=== PATIENT | female | born 1960 | race Caucasian/White ===

== ENCOUNTER 2017-01-06 18:01 | Inpatient (IN) | payer MEDICAID, OTHER, SELFPAY ==
[2017-01-06 18:01] VITALS: BMI 32.5
[2017-01-06] MEDS ORDERED: Aspirin 325 mg EC Tablets PO STA (18:21)
--- NOTE | 2017-01-06 18:26 | C.PDOC ---
History Of Present Illness 56 y/o female with Hx of HTN, hypothyrodism and Gastritis presents to ED with complaints of left sided heaviness chest pain since earlier today. Patient states symptoms developed while she was cooking worse with deep breaths. At bedside patient has paperwork from [place] that show she has CAD. Patient denies fever, cough, sob or any other complaints at this time. Time Seen by Provider: 01/06/17 18:06 Chief Complaint (Nursing): Chest Pain History Per: Patient History/Exam Limitations: no limitations Onset/Duration Of Symptoms: Hrs Current Symptoms Are (Timing): Still Present Past Medical History Reviewed: Historical Data, Nursing Documentation, Vital Signs Vital Signs: Last Vital Signs Temp 97.5 F L 01/07/17 09:32 Pulse 63 01/07/17 09:32 Resp 20 01/07/17 09:32 BP 107/66 01/07/17 09:32 Pulse Ox 98 01/07/17 09:32 - Medical History PMH: Gastritis, HTN, Hypercholesterolemia, Hypothyroidism Surgical History: No Surg Hx Family History: States: No Known Family Hx - Social History Hx Alcohol Use: No Hx Substance Use: No - Immunization History Hx Tetanus Toxoid Vaccination: No Hx Influenza Vaccination: No Hx Pneumococcal Vaccination: No Review Of Systems Except As Marked, All Systems Reviewed And Found Negative. Constitutional: Negative for: Fever, Chills Cardiovascular: Positive for: Chest Pain Respiratory: Negative for: Cough, Shortness of Breath Gastrointestinal: Negative for: Nausea, Vomiting Skin: Negative for: Rash Physical Exam - Physical Exam Appears: Non-toxic, No Acute Distress Skin: Normal Color, Warm, Dry, No Rash Head: Atraumatic, Normacephalic Eye(s): bilateral: Normal Inspection Oral Mucosa: Moist Neck: Normal ROM, Supple Chest: Symmetrical Cardiovascular: Rhythm Regular, No Murmur Respiratory: Normal Breath Sounds, No Rales, No Rhonchi, No Wheezing Extremity: Normal ROM, Capillary Refill (<2 seconds) Neurological/Psych: Oriented x3, Normal Speech ED Course And Treatment - Laboratory Results Result Diagrams: 01/07/17 11:29 01/07/17 11:29 ECG: Interpreted By Me, Viewed By Me ECG Rhythm: Sinus Rhythm ECG Interpretation: Normal Rate From EC (BPM) O2 Sat by Pulse Oximetry: 100 (RA) Pulse Ox Interpretation: Normal Medical Decision Making Medical Decision Making: cp r/o acs- pt with paper work that shows has cad with 50% stenosis. Plan: * ECG * CXR * UA * Blood work * 730: discussed with dr munoz, accepts for obs. pt states pain nearly resolved. smiling in nad. Disposition - Disposition Disposition: HOSPITALIZED Disposition Time: 19:37 Condition: STABLE - Clinical Impression Clinical Impression: Chest pain - Scribe Statement The provider has reviewed the documentation as recorded by the Scribgilles Iyer All medical record entries made by the Anilibe were at my direction and personally dictated by me. I have reviewed the chart and agree that the record accurately reflects my personal performance of the history, physical exam, medical decision making, and the department course for this patient. I have also personally directed, reviewed, and agree with the discharge instructions and disposition. Decision To Admit - . Bed Request Type: Telemetry Admitting Physician: Hanny Munoz Patient Diagnosis: Chest pain
[2017-01-06 18:55] LABS: BASO # 0.1 K/uL (0.0-0.2); BASO % 0.9 % (0.0-2.0); EOS # 0.2 K/uL (0.0-0.7); EOS % 2.3 % (0.0-4.0); HEMATOCRIT 34.6 % (34.0-47.0); LYMPH # 3.3 K/uL (1.0-4.3); LYMPH % 31.6 % (20.0-40.0); MEAN CELL VOLUME 82.1 fL (81.0-99.0); MEAN CORPUSCULAR HEMOGLOBIN 27.9 pg (27.0-31.0); MEAN PLATELET VOLUME 9.4 fL (7.2-11.7); MONO # 0.6 K/uL (0.0-0.8); MONO % 5.6 % (0.0-10.0); RED CELL DISTRIBUTION WIDTH 13.4 % (11.5-14.5); WHITE BLOOD COUNT 10.6 K/uL (4.8-10.8)
[2017-01-06] MEDS ORDERED: Aspirin 325 mg EC Tablets PO ONE (18:56)
[2017-01-06 18:58] LABS: RBC URINE < 1 /hpf (0-3); URINE BACTERIA RARE (<OCC); URINE BILIRUBIN NEGATIVE (NEGATIVE); URINE BLOOD NEGATIVE (NEGATIVE); URINE COLOR Colorless (YELLOW); URINE GLUCOSE (UA) NORMAL (Normal); URINE KETONE NEGATIVE (NEGATIVE); URINE LEUKOCYTE ESTERASE NEG Leu/uL (Negative); URINE PROTEIN NEGATIVE (NEGATIVE); URINE UROBILINOGEN NORMAL mg/dL (0.2-1.0); WBC URINE < 1 /hpf (0-5)
[2017-01-06 19:02] LABS: CHLORIDE 105 mmol/L (98-107); SODIUM 144 mmol/L (132-148)
[2017-01-06 19:03] LABS: POTASSIUM 3.9 mmol/L (3.6-5.2)
[2017-01-06 19:04] LABS: INR 1.2; PARTIAL THROMBOPLASTIN TIME 31 SECONDS (21-34)
[2017-01-06 19:05] LABS: ALB/GLOB RATIO 1.3 (1.0-2.1); ALKALINE PHOSPHATASE 97 U/L (38-126); ALT/SGPT 27 U/L (9-52); AST/SGOT 21 U/L (14-36); BILIRUBIN,TOTAL 0.5 mg/dL (0.2-1.3); BLOOD UREA NITROGEN 10 mg/dL (7-17); CARBON DIOXIDE 27 mmol/L (22-30); GFR AFRICAN-AMERICAN > 60; GLUCOSE,RANDOM 110 mg/dL (65-105); TOTAL PROTEIN 7.4 g/dL (6.3-8.3)
[2017-01-06 19:06] LABS: CALCIUM 8.8 mg/dl (8.6-10.4)
[2017-01-06 20:49] VITALS: RESP 20
--- NOTE | 2017-01-06 21:41 | CP.PCM.HP ---
Past Patient History - Past Social History Smoking Status: Never Smoked - CARDIAC Hx Hypercholesterolemia: Yes Hx Hypertension: Yes - ENDOCRINE/METABOLIC Hx Hypothyroidism: Yes - GASTROINTESTINAL Hx Gastritis: Yes - PSYCHIATRIC Hx Substance Use: No - SURGICAL HISTORY Hx Surgeries: No - ANESTHESIA Hx Anesthesia: No Meds Allergies/Adverse Reactions: Allergies Allergy/AdvReac Type Severity Reaction Status Date / Time No Known Allergies Allergy Verified 01/06/17 18:25 Physical Exam - Constitutional Appears: Well - Head Exam Head Exam: ATRAUMATIC, NORMAL INSPECTION, NORMOCEPHALIC - Eye Exam Eye Exam: EOMI, Normal appearance, PERRL Pupil Exam: NORMAL ACCOMODATION, PERRL - ENT Exam ENT Exam: Mucous Membranes Moist, Normal Exam - Neck Exam Neck exam: Positive for: Normal Inspection - Respiratory Exam Respiratory Exam: Decreased Breath Sounds - Cardiovascular Exam Cardiovascular Exam: REGULAR RHYTHM - GI/Abdominal Exam GI & Abdominal Exam: Diminished Bowel Sounds, Soft - Rectal Exam Rectal Exam: Deferred Results - Vital Signs Recent Vital Signs: Last Vital Signs Temp 98 F 01/06/17 20:33 Pulse 67 01/06/17 20:33 Resp 20 01/06/17 20:33 BP 117/69 01/06/17 20:33 Pulse Ox 96 01/06/17 20:33 - Labs Result Diagrams: 01/06/17 18:50 01/06/17 18:50
--- NOTE | 2017-01-07 06:53 | CP.PCM.CON ---
History of Present Illness - History of Present Illness History of Present Illness: record noted. will plan for stress test. full consult to follow. Past Patient History - Past Medical History & Family History Past Medical History?: Yes - Past Social History Smoking Status: Never Smoked - CARDIAC Hx Hypercholesterolemia: Yes Hx Hypertension: Yes - ENDOCRINE/METABOLIC Hx Hypothyroidism: Yes - MUSCULOSKELETAL/RHEUMATOLOGICAL Hx Falls: No - GASTROINTESTINAL Hx Gastritis: Yes - PSYCHIATRIC Hx Substance Use: No - SURGICAL HISTORY Hx Surgeries: No - ANESTHESIA Hx Anesthesia: No Meds Allergies/Adverse Reactions: Allergies Allergy/AdvReac Type Severity Reaction Status Date / Time No Known Allergies Allergy Verified 01/06/17 18:25 - Medications Medications: Current Medications Aspirin (Aspirin) 325 mg PO DAILY [facility] Clopidogrel Bisulfate (Plavix) 75 mg PO DAILY [facility] Enoxaparin Sodium (Lovenox) 40 mg SC DAILY [facility] Influenza Virus Vaccine (Afluria) 45 mcg IM .ONCE ONE Stop: 01/07/17 10:01 Levothyroxine Sodium (Synthroid) 50 mcg PO DAILY@0630 [facility] Metoprolol Tartrate (Lopressor) 25 mg PO DAILY [facility] Morphine Sulfate (Morphine) 2 mg IV Q8 PRN PRN Reason: Pain, moderate (4-7) Last Admin: 01/06/17 22:22 Dose: 2 mg Pantoprazole Sodium (Protonix Ec Tab) 40 mg PO DAILY [facility] Pneumococcal Polyvalent Vaccine (Pneumovax 23 Vaccine) 0.5 ml IM .ONCE ONE Stop: 01/07/17 10:01 Rosuvastatin Calcium (Crestor) 10 mg PO HS [facility] Last Admin: 01/06/17 22:22 Dose: 10 mg Results - Vital Signs Recent Vital Signs: Last Vital Signs Temp 98.2 F 01/06/17 23:45 Pulse 64 01/06/17 23:45 Resp 20 01/06/17 23:45 BP 107/58 L 01/06/17 23:45 Pulse Ox 97 01/06/17 23:45 - Labs Result Diagrams: 01/06/17 18:50 01/06/17 18:50 Labs: Laboratory Results - last 24 hr 01/07/17 01/07/17 03:30 06:39 POC Glucose (mg/dL) 116 H Total Creatine Kinase 29 L CK-MB (Mass) < 0.22 Troponin I, Quant < 0.0120
[2017-01-07] MEDS: Levothyroxine 50 MCG TAB PO SCH (07:14)
[2017-01-07] MEDS ORDERED: Aminophylline 25 mg/ml Inj ONE (07:47)
--- NOTE | 2017-01-07 08:12 | RAD ---
PROCEDURE: CHEST RADIOGRAPH, 1 VIEW HISTORY: chest pain COMPARISON: None available. FINDINGS: LUNGS: Mild venous congestion. Patchy bibasilar airspace opacities. Focal consolidative changes in the left suprahilar region. Right hilar prominence. Scattered nodular densities in both lungs. PLEURA: As above. CARDIOVASCULAR: Mild cardiomegaly. Calcification at the aortic knob. OSSEOUS STRUCTURES: Degenerative changes in the spine with paravertebral osteophytes. Degenerative changes in the shoulders. VISUALIZED UPPER ABDOMEN: Normal. OTHER FINDINGS: None. IMPRESSION: Mild venous congestion. Patchy bibasilar airspace opacities. Focal consolidative changes in the left suprahilar region. Right hilar prominence. Scattered nodular densities in both lungs.
[2017-01-07] MEDS: Enoxaparin 40 mg Syringe SC SCH (09:58)
[2017-01-07] MEDS: Pantoprazole 40 mg EC Tab PO SCH (09:59)
[2017-01-07] MEDS ORDERED: Pneumococcal 23-Valent Vaccine IM ONE (10:00)
[2017-01-07] MEDS ORDERED: Influenza Virus Vaccine 45 mcg/0.5 ml Syr IM ONE (10:00)
[2017-01-07 11:39] LABS: BASO % 0.6 % (0.0-2.0); EOS # 0.2 K/uL (0.0-0.7); EOS % 3.2 % (0.0-4.0); HEMATOCRIT 33.3 % (34.0-47.0); LYMPH # 2.4 K/uL (1.0-4.3); LYMPH % 36.6 % (20.0-40.0); MEAN CELL VOLUME 82.8 fL (81.0-99.0); MEAN CORPUSCULAR HEMOGLOBIN 28.3 pg (27.0-31.0); MEAN CORPUSCULAR HGB CONC 34.2 g/dL (33.0-37.0); MEAN PLATELET VOLUME 10.1 fL (7.2-11.7); MONO # 0.5 K/uL (0.0-0.8); MONO % 7.1 % (0.0-10.0); NRBC % 0.1 % (0.0-2.0); RED CELL DISTRIBUTION WIDTH 13.1 % (11.5-14.5); WHITE BLOOD COUNT 6.6 K/uL (4.8-10.8)
[2017-01-07 11:55] LABS: ALB/GLOB RATIO 1.1 (1.0-2.1); ALKALINE PHOSPHATASE 100 U/L (38-126); ALT/SGPT 28 U/L (9-52); AST/SGOT 25 U/L (14-36); BILIRUBIN,TOTAL 0.5 mg/dL (0.2-1.3); BLOOD UREA NITROGEN 10 mg/dL (7-17); CALCIUM 9.1 mg/dl (8.6-10.4); CARBON DIOXIDE 29 mmol/L (22-30); CHLORIDE 100 mmol/L (98-107); GFR AFRICAN-AMERICAN > 60; GLUCOSE,RANDOM 117 mg/dL (65-105); POTASSIUM 4.2 mmol/L (3.6-5.2); SODIUM 142 mmol/L (132-148); TOTAL PROTEIN 7.1 g/dL (6.3-8.3)
--- NOTE | 2017-01-07 15:36 | CP.PCM.PN ---
Subjective - Date & Time of Evaluation Date of Evaluation: 01/07/17 Time of Evaluation: 08:00 - Subjective Subjective: Medicine Progress Note- Dr. Charlene Chiu's service: 56 year old female with PMHx of HTN, CAD, gastritis, HLD, hypothyroidism admitted overnight for chest pain. Admits chest pain was pressure like. Symptoms are not due to reflux as per patient. She had cath done in [place] last year which showed 50% occlusion of Lcx. Patient seen and examined at bedside this AM. Patient reports feeling better this AM, but continues to experience chest discomfort. Patient was seen by Dr. Hall who recommended a stress test. Patient is scheduled for stress test today. PMHx: HTN, CAD, gastritis, HLD, hypothyroidism Medications: Aspirin 81 mg PO daily, Levothyroxine 50 mcg PO daily, Metoprolol 25 mg PO daily, Protonix 40 mg PO daily, Crestor 10 mg PO HS. Allergies: NKDA Surgery Hx: none Social Hx: denies Family Hx: reviewed and non contributory Objective - Vital Signs/Intake and Output Vital Signs (last 24 hours): Temp Pulse Resp BP Pulse Ox 97.5 F L 63 20 107/66 98 01/07/17 09:32 01/07/17 09:32 01/07/17 09:32 01/07/17 09:32 01/07/17 09:32 Intake and Output: 01/07/17 01/07/17 06:59 18:59 Intake Total 50 Balance 50 - Medications Medications: Current Medications Aspirin (Aspirin) 325 mg PO DAILY [facility] Last Admin: 01/07/17 10:08 Dose: 325 mg Clopidogrel Bisulfate (Plavix) 75 mg PO DAILY [facility] Last Admin: 01/07/17 09:58 Dose: 75 mg Enoxaparin Sodium (Lovenox) 40 mg SC DAILY [facility] Last Admin: 01/07/17 09:58 Dose: 40 mg Levothyroxine Sodium (Synthroid) 50 mcg PO DAILY@0630 [facility] Last Admin: 01/07/17 07:14 Dose: 50 mcg Metoprolol Tartrate (Lopressor) 25 mg PO DAILY [facility] Last Admin: 01/07/17 09:59 Dose: 25 mg Morphine Sulfate (Morphine) 2 mg IV Q8 PRN PRN Reason: Pain, moderate (4-7) Last Admin: 01/06/17 22:22 Dose: 2 mg Pantoprazole Sodium (Protonix Ec Tab) 40 mg PO DAILY [facility] Last Admin: 01/07/17 09:59 Dose: 40 mg Rosuvastatin Calcium (Crestor) 10 mg PO HS [facility] Last Admin: 01/06/17 22:22 Dose: 10 mg - Labs Labs: 01/07/17 11:29 01/07/17 11:29 PT 12.9 SECONDS (9.7-12.2) H 01/06/17 18:50 INR 1.2 01/06/17 18:50 APTT 31 SECONDS (21-34) 01/06/17 18:50 - Constitutional Appears: No Acute Distress - Head Exam Head Exam: NORMAL INSPECTION, NORMOCEPHALIC - Eye Exam Eye Exam: EOMI, Normal appearance - ENT Exam ENT Exam: Mucous Membranes Moist - Neck Exam Neck Exam: Full ROM, Normal Inspection - Respiratory Exam Respiratory Exam: Clear to Ausculation Bilateral, NORMAL BREATHING PATTERN - Cardiovascular Exam Cardiovascular Exam: REGULAR RHYTHM, +S1, +S2 - GI/Abdominal Exam GI & Abdominal Exam: Soft. absent: Distended, Tenderness - Extremities Exam Extremities Exam: Full ROM, Normal Inspection. absent: Pedal Edema - Neurological Exam Neurological Exam: Alert, Awake, Oriented x3 - Psychiatric Exam Psychiatric exam: Normal Affect, Normal Mood - Skin Skin Exam: Dry, Normal Color, Warm Assessment and Plan (1) Chest pain Assessment & Plan: Monitor on Telemetry Cardio consult placed- Dr. Hall- help appreciated EKG on admission showed NSR 71 bpm. LEXA negative X 3 CXR done on admission showed mild venous congestion. Patchy bibasilar airspace opacities. Focal consolidative changes in the left suprahilar region. Right hilar prominence. Scattered nodular densities in both lungs. As per Dr. Hall, patient is NPO for stress test today. f/u stress test results Aspirin 81 mg PO daily Plavix 75 mg PO daily Lopressr 25 mg PO daily Crestor 10 mg PO HS Morphine 2 mg IV q8H PRN for pain Status: Acute (2) CAD (coronary artery disease) Assessment & Plan: Patient with 50% occlusion of Hx of LCx Aspirin 81 mg PO daily Plavix 75 mg PO daily Lopressr 25 mg PO daily Crestor 10 mg PO HS Status: Acute (3) Hypothyroidism Assessment & Plan: Continue home medication: Synthroid 50 mcg PO daily Status: Acute (4) HTN (hypertension) Assessment & Plan: BP controlled Lopressor 25 mg PO daily Status: Acute (5) Prophylactic measure Assessment & Plan: Protonix 40 mg PO daily Lovenox 40 mg SC daily All management as per Dr. Charlene Chiu. Status: Acute
--- NOTE | 2017-01-07 16:42 | CP.PCM.CON ---
History of Present Illness - History of Present Illness History of Present Illness: I was asked to see patient by Dr Charlene Chiu. Patient is a 56 year old female with a history of CAD, HTN who presents with chest pain. The patient describes pressure in the chest which is intermittent, asociated with dypsnea. She describes a pressure like sensation which radiates to the arm. Symptoms improve with rest. Review of Systems - Constitutional Constitutional: absent: As Per HPI, Anorexia, Chills, Daytime Sleepiness, Excessive Sweating, Fatigue, Fever, Frequent Falls, Headache, Increased Appetite , Lethargy, Malaise, Night Sweats, Snoring, Sleep Apnea, Weight Gain, Weight Loss, Weakness, Other - EENT Eyes: absent: As Per HPI, Blind Spots, Blurred Vision, Change in Vision, Decreased Night Vision, Diplopia, Discharge, Dry Eye, Exophthalmos, Floaters, Irritation, Itchy Eyes, Loss of Peripheral Vision, Pain, Photophobia, Requires Corrective Lenses, Sees Flashes, Spots in Vision, Tunnel Vision, Other Visual Disturbances, Loss of Vision, Other Ears: absent: As Per HPI, Decreased Hearing, Ear Discharge, Ear Pain, Tinnitus, Abnormal Hearing, Disequilibrium, Dizziness, Other Nose/Mouth/Throat: absent: As Per HPI, Epistaxis, Nasal Congestion, Nasal Discharge, Nasal Obstruction, Nasal Trauma, Nose Pain, Post Nasal Drip, Sinus Pain, Sinus Pressure, Bleeding Gums, Change in Voice, Dental Pain, Dry Mouth, Dysphagia, Halitosis, Hoarsness, Lip Swelling, Mouth Lesions, Mouth Pain, Odynophagia, Sore Throat, Throat Swelling, Tongue Swelling, Facial Pain, Neck Pain, Neck Mass, Other - Breasts Breasts: absent: As Per HPI, Change in Shape, Mass, Pain, Nipple Discharge, Nipple Inversion, Skin Changes, Swelling, Other - Cardiovascular Cardiovascular: Chest Pain, Dyspnea - Respiratory Respiratory: absent: As Per HPI, Cough, Dyspnea, Hemoptysis, Dyspnea on Exertion , Wheezing, Snoring, Stridor, Pain on Inspiration, Chest Congestion, Excessive Mucous Production, Change in Mucous Color, Pain with Coughing, Other - Gastrointestinal Gastrointestinal: absent: As Per HPI, Abdominal Pain, Belching, Bloating, Change in Bowel Habits, Change in Stool Character, Coffee Ground Emesis, Constipation, Cramping, Diarrhea, Dyspepsia, Dysphagia, Early Satiety, Excessive Flatus, Fecal Incontinence, Heartburn, Hematemesis, Hematochezia, Loose Stools, Melena, Nausea, Odynophagia, Temesmus, Vomiting, Other - Genitourinary Genitourinary: absent: As Per HPI, Change in Urinary Stream, Difficulty Urinating, Dysuria, Flank Pain, Hematuria, Pyuria, Nocturia, Urinary Incontinence, Urinary Frequency, Urinary Hesitance, Urinary Urgency, Voiding Freq/Small Amts, Freq UTI, Hx Renal/Bladder Calculi, Hx /Renal Surgery, Bladder Distension, Other - Musculoskeletal Musculoskeletal: absent: As Per HPI, Abnormal Gait, Arthralgias, Atrophy, Back Pain, Deformity, Joint Swelling, Limited Range of Motion, Loss of Height, Muscle Cramps, Muscle Weakness, Myalgias, Neck Pain, Numbness, Radiating Pain into Limb, Stiffness, Tingling, Other - Integumentary Integumentary: absent: As Per HPI, Acne, Alopecia, Bleeding Lesions, Change in Hair, Change in Nails, Change in Pigmentation, Changing Lesions, Dry Skin, Erythema, Furuncle, Hirsutism, Lesions, New Lesions, Non-Healing Lesions, Photosensitivity, Pruritus, Rash, Skin Pain, Skin Ulcer, Sores, Striae, Swelling , Unusual Bruising, Wounds, Jaundice, Other - Neurological Neurological: absent: As Per HPI, Abnormal Gait, Abnormal Hearing, Abnormal Movements, Abnormal Speech, Behavioral Changes, Burning Sensations, Confusion, Convulsions, Disequilibrium, Dizziness, Numbness, Focal Weakness, Frequent Falls , Headaches, Lack of Coordination, Loss of Vision, Memory Loss, Paresthesias, Radicular Pain, Restless Legs, Sensory Deficit, Syncope, Tingling, Tremor, Vertigo, Weakness, Other Visual Disturbances, Other - Psychiatric Psychiatric: absent: As Per HPI, Abnormal Sleep Pattern, Anhedonia, Anxiety, Auditory Hallucinations, Behavioral Changes, Change in Appetite, Change in Libido, Confusion, Depression, Difficulty Concentrating, Hallucinations, Homicidal Ideation, Hopelessness, Irritability, Memory Loss, Mood Swings, Panic Attacks, Paranoia, Suicidal Ideation, Visual Hallucinations, Tactile Hallucinations, Other - Endocrine Endocrine: absent: As Per HPI, Change in Body Appearance, Change in Libido, Cold Intolorance, Deepening of Voice, Excessive Sweating, Fatigue, Flushing, Heat Intolorance, Increase in Ring/Shoe/Hat Size, Palpitations, Polydipsia, Polyphagia, Polyuria, Other - Hematologic/Lymphatic Hematologic: absent: As Per HPI, Easy Bleeding, Easy Bruising, Lymphadenopathy, Other Past Patient History - Past Medical History & Family History Past Medical History?: Yes - Past Social History Smoking Status: Never Smoked - CARDIAC Hx Hypercholesterolemia: Yes Hx Hypertension: Yes - ENDOCRINE/METABOLIC Hx Hypothyroidism: Yes - MUSCULOSKELETAL/RHEUMATOLOGICAL Hx Falls: No - GASTROINTESTINAL Hx Gastritis: Yes - PSYCHIATRIC Hx Substance Use: No - SURGICAL HISTORY Hx Surgeries: No - ANESTHESIA Hx Anesthesia: No Meds Allergies/Adverse Reactions: Allergies Allergy/AdvReac Type Severity Reaction Status Date / Time No Known Allergies Allergy Verified 01/06/17 18:25 - Medications Medications: Current Medications Aspirin (Aspirin) 325 mg PO DAILY [facility] Last Admin: 01/07/17 10:08 Dose: 325 mg Clopidogrel Bisulfate (Plavix) 75 mg PO DAILY [facility] Last Admin: 01/07/17 09:58 Dose: 75 mg Enoxaparin Sodium (Lovenox) 40 mg SC DAILY [facility] Last Admin: 01/07/17 09:58 Dose: 40 mg Levothyroxine Sodium (Synthroid) 50 mcg PO DAILY@0630 [facility] Last Admin: 01/07/17 07:14 Dose: 50 mcg Metoprolol Tartrate (Lopressor) 25 mg PO DAILY [facility] Last Admin: 01/07/17 09:59 Dose: 25 mg Morphine Sulfate (Morphine) 2 mg IV Q8 PRN PRN Reason: Pain, moderate (4-7) Last Admin: 01/06/17 22:22 Dose: 2 mg Pantoprazole Sodium (Protonix Ec Tab) 40 mg PO DAILY [facility] Last Admin: 01/07/17 09:59 Dose: 40 mg Rosuvastatin Calcium (Crestor) 10 mg PO HS [facility] Last Admin: 01/06/17 22:22 Dose: 10 mg Physical Exam - Constitutional Appears: Non-toxic - Head Exam Head Exam: NORMAL INSPECTION - Eye Exam Eye Exam: Normal appearance - ENT Exam ENT Exam: Mucous Membranes Moist - Neck Exam Neck exam: Positive for: Full Rom - Respiratory Exam Respiratory Exam: NORMAL BREATHING PATTERN - Cardiovascular Exam Cardiovascular Exam: Clicks - GI/Abdominal Exam GI & Abdominal Exam: Normal Bowel Sounds - Rectal Exam Rectal Exam: Deferred - Extremities Exam Extremities exam: Positive for: pedal edema - Back Exam Back exam: NORMAL INSPECTION - Neurological Exam Neurological exam: Alert, Oriented x3 - Psychiatric Exam Psychiatric exam: Normal Affect - Skin Skin Exam: Normal Color Results - Vital Signs Recent Vital Signs: Last Vital Signs Temp 97.6 F 01/07/17 16:04 Pulse 61 01/07/17 16:04 Resp 20 01/07/17 16:04 BP 109/67 01/07/17 16:04 Pulse Ox 97 01/07/17 16:04 - Labs Result Diagrams: 01/07/17 11:29 01/07/17 11:29 Labs: Laboratory Results - last 24 hr 01/07/17 01/07/17 01/07/17 03:30 06:39 11:29 WBC RBC Hgb Hct MCV MCH MCHC RDW Plt Count MPV Neut % (Auto) Lymph % (Auto) [place] % (Auto) Eos % (Auto) Baso % (Auto) Neut # Lymph # [place] # Eos # Baso # Sodium 142 Potassium 4.2 Chloride 100 Carbon Dioxide 29 Anion Gap 17 BUN 10 Creatinine 0.6 L Est GFR ( Amer) > 60 Est GFR (Non-Af Amer) > 60 POC Glucose (mg/dL) 116 H Random Glucose 117 H Calcium 9.1 Total Bilirubin 0.5 AST 25 ALT 28 Alkaline Phosphatase 100 Total Creatine Kinase 29 L 27 L CK-MB (Mass) < 0.22 < 0.22 Troponin I, Quant < 0.0120 < 0.0120 Total Protein 7.1 Albumin 3.8 Globulin 3.3 Albumin/Globulin Ratio 1.1 01/07/17 11:29 WBC 6.6 RBC 4.02 Hgb 11.4 Hct 33.3 L MCV 82.8 MCH 28.3 MCHC 34.2 RDW 13.1 Plt Count 182 MPV 10.1 Neut % (Auto) 52.5 Lymph % (Auto) 36.6 [place] % (Auto) 7.1 Eos % (Auto) 3.2 Baso % (Auto) 0.6 Neut # 3.5 Lymph # 2.4 [place] # 0.5 Eos # 0.2 Baso # 0.0 Sodium Potassium Chloride Carbon Dioxide Anion Gap BUN Creatinine Est GFR ( Amer) Est GFR (Non-Af Amer) POC Glucose (mg/dL) Random Glucose Calcium Total Bilirubin AST ALT Alkaline Phosphatase Total Creatine Kinase CK-MB (Mass) Troponin I, Quant Total Protein Albumin Globulin Albumin/Globulin Ratio - EKG Data EKG Interpreted by: Myself EKG shows normal: Sinus rhythm Assessment & Plan (1) CAD (coronary artery disease) Assessment and Plan: given symptoms recommend stress test Status: Acute (2) HTN (hypertension) Status: Acute
--- NOTE | 2017-01-07 21:09 | CP.PCM.PN ---
Subjective - Date & Time of Evaluation Date of Evaluation: 01/07/17 Time of Evaluation: 10:40 - Subjective Subjective: clinically same Objective - Vital Signs/Intake and Output Vital Signs (last 24 hours): Temp Pulse Resp BP Pulse Ox 97.6 F 83 20 109/67 97 01/07/17 16:04 01/07/17 18:00 01/07/17 16:04 01/07/17 16:04 01/07/17 16:04 Intake and Output: 01/07/17 01/08/17 18:59 06:59 Intake Total 50 Balance 50 - Medications Medications: Current Medications Aspirin (Aspirin) 325 mg PO DAILY [facility] Last Admin: 01/07/17 10:08 Dose: 325 mg Clopidogrel Bisulfate (Plavix) 75 mg PO DAILY [facility] Last Admin: 01/07/17 09:58 Dose: 75 mg Enoxaparin Sodium (Lovenox) 40 mg SC DAILY [facility] Last Admin: 01/07/17 09:58 Dose: 40 mg Levothyroxine Sodium (Synthroid) 50 mcg PO DAILY@0630 [facility] Last Admin: 01/07/17 07:14 Dose: 50 mcg Metoprolol Tartrate (Lopressor) 25 mg PO DAILY [facility] Last Admin: 01/07/17 09:59 Dose: 25 mg Morphine Sulfate (Morphine) 2 mg IV Q8 PRN PRN Reason: Pain, moderate (4-7) Last Admin: 01/06/17 22:22 Dose: 2 mg Pantoprazole Sodium (Protonix Ec Tab) 40 mg PO DAILY [facility] Last Admin: 01/07/17 09:59 Dose: 40 mg Rosuvastatin Calcium (Crestor) 10 mg PO [facility] Last Admin: 01/06/17 22:22 Dose: 10 mg - Labs Labs: 01/07/17 11:29 01/07/17 11:29 PT 12.9 SECONDS (9.7-12.2) H 01/06/17 18:50 INR 1.2 01/06/17 18:50 APTT 31 SECONDS (21-34) 01/06/17 18:50
[2017-01-08] MEDS: Levothyroxine 50 MCG TAB PO SCH ×2 (05:43→06:30)
[2017-01-08 06:45] LABS: BASO # 0.1 K/uL (0.0-0.2); BASO % 0.7 % (0.0-2.0); EOS # 0.4 K/uL (0.0-0.7); EOS % 3.9 % (0.0-4.0); HEMATOCRIT 39.1 % (34.0-47.0); LYMPH # 3.6 K/uL (1.0-4.3); LYMPH % 33.6 % (20.0-40.0); MEAN CELL VOLUME 82.7 fL (81.0-99.0); MEAN CORPUSCULAR HGB CONC 33.8 g/dL (33.0-37.0); MEAN PLATELET VOLUME 9.9 fL (7.2-11.7); MONO # 0.7 K/uL (0.0-0.8); MONO % 6.6 % (0.0-10.0); NRBC % 0.1 % (0.0-2.0); RED CELL DISTRIBUTION WIDTH 13.2 % (11.5-14.5); WHITE BLOOD COUNT 10.8 K/uL (4.8-10.8)
[2017-01-08 07:00] LABS: CHLORIDE 99 mmol/L (98-107); POTASSIUM 4.7 mmol/L (3.6-5.2); SODIUM 142 mmol/L (132-148)
[2017-01-08 07:02] LABS: GFR AFRICAN-AMERICAN > 60
[2017-01-08] MEDS ORDERED: Nitroglycerin 50mg in D5W 50 MG/250 ML BOTTLE IV ONE (07:02)
[2017-01-08 07:03] LABS: ALB/GLOB RATIO 1.3 (1.0-2.1); ALKALINE PHOSPHATASE 104 U/L (38-126); ALT/SGPT 29 U/L (9-52); AST/SGOT 26 U/L (14-36); BILIRUBIN,TOTAL 0.6 mg/dL (0.2-1.3); BLOOD UREA NITROGEN 11 mg/dL (7-17); CARBON DIOXIDE 31 mmol/L (22-30); GLUCOSE,RANDOM 120 mg/dL (65-105); PHOSPHOROUS 4.7 mg/dL (2.5-4.5); TOTAL PROTEIN 7.5 g/dL (6.3-8.3)
[2017-01-08 07:04] LABS: CALCIUM 9.8 mg/dl (8.6-10.4); MAGNESIUM 2.1 mg/dL (1.6-2.3)
[2017-01-08] MEDS ORDERED: Midazolam 2 MG/2 ML VIAL ONE (07:04)
[2017-01-08] MEDS ORDERED: Sodium Chloride 0.9% 500 ML IV SCH (07:43)
--- NOTE | 2017-01-08 07:43 | CP.PCM.PN ---
Subjective - Date & Time of Evaluation Date of Evaluation: 01/08/17 Time of Evaluation: 07:40 - Subjective Subjective: cardaic cath performed. LM normal LAD 40% mid Diagonal 2 50% mid LCx mild disease RCA mild disease LV EF 55%. Plan: medical therapy. stable for discharge. Objective - Vital Signs/Intake and Output Vital Signs (last 24 hours): Temp Pulse Resp BP Pulse Ox 97.8 F 95 H 20 132/72 96 01/08/17 06:33 01/08/17 06:33 01/08/17 06:33 01/08/17 06:33 01/08/17 06:33 - Medications Medications: Current Medications Aspirin (Aspirin) 325 mg PO DAILY [facility] Last Admin: 01/07/17 10:08 Dose: 325 mg Clopidogrel Bisulfate (Plavix) 75 mg PO DAILY [facility] Last Admin: 01/07/17 09:58 Dose: 75 mg Enoxaparin Sodium (Lovenox) 40 mg SC DAILY [facility] Last Admin: 01/07/17 09:58 Dose: 40 mg Levothyroxine Sodium (Synthroid) 50 mcg PO DAILY@0630 [facility] Last Admin: 01/08/17 06:30 Dose: 50 mcg Metoprolol Tartrate (Lopressor) 25 mg PO DAILY [facility] Last Admin: 01/08/17 06:29 Dose: 25 mg Morphine Sulfate (Morphine) 2 mg IV Q8 PRN PRN Reason: Pain, moderate (4-7) Last Admin: 01/07/17 21:32 Dose: 2 mg Pantoprazole Sodium (Protonix Ec Tab) 40 mg PO DAILY [facility] Last Admin: 01/07/17 09:59 Dose: 40 mg Rosuvastatin Calcium (Crestor) 10 mg PO HS [facility] Last Admin: 01/07/17 21:32 Dose: 10 mg - Labs Labs: 01/08/17 06:36 01/08/17 06:36 PT 12.9 SECONDS (9.7-12.2) H 01/06/17 18:50 INR 1.2 01/06/17 18:50 APTT 31 SECONDS (21-34) 01/06/17 18:50 Assessment and Plan (1) CAD (coronary artery disease) Status: Acute (2) HTN (hypertension) Status: Acute
[2017-01-08] MEDS: Enoxaparin 40 mg Syringe SC SCH ×2 (10:53→11:04)
[2017-01-08] MEDS: Pantoprazole 40 mg EC Tab PO SCH (10:54)
--- NOTE | 2017-01-08 15:31 | CP.PCM.PN ---
Subjective - Date & Time of Evaluation Date of Evaluation: 01/08/17 Time of Evaluation: 15:30 - Subjective Subjective: Progress note. Attending: Dr. Chiu Pt seen and examined at bedside. No acute distress. No events overnight. No fevers, chills, vomiting, diarrhea. No cp, sob. Objective - Vital Signs/Intake and Output Vital Signs (last 24 hours): Temp Pulse Resp BP Pulse Ox 97.4 F L 67 20 113/63 96 01/08/17 10:52 01/08/17 10:52 01/08/17 10:52 01/08/17 10:52 01/08/17 10:52 - Medications Medications: Current Medications Aspirin (Aspirin) 325 mg PO DAILY [facility] Last Admin: 01/08/17 10:54 Dose: 325 mg Clopidogrel Bisulfate (Plavix) 75 mg PO DAILY [facility] Last Admin: 01/08/17 10:53 Dose: 75 mg Enoxaparin Sodium (Lovenox) 40 mg SC DAILY [facility] Last Admin: 01/08/17 11:04 Dose: Not Given Levothyroxine Sodium (Synthroid) 50 mcg PO DAILY@0630 [facility] Last Admin: 01/08/17 06:30 Dose: 50 mcg Metoprolol Tartrate (Lopressor) 25 mg PO DAILY [facility] Last Admin: 01/08/17 10:54 Dose: 25 mg Morphine Sulfate (Morphine) 2 mg IV Q8 PRN PRN Reason: Pain, moderate (4-7) Last Admin: 01/07/17 21:32 Dose: 2 mg Pantoprazole Sodium (Protonix Ec Tab) 40 mg PO DAILY [facility] Last Admin: 01/08/17 10:54 Dose: 40 mg Rosuvastatin Calcium (Crestor) 10 mg PO HS [facility] Last Admin: 01/07/17 21:32 Dose: 10 mg - Labs Labs: 01/08/17 06:36 01/08/17 06:36 PT 12.9 SECONDS (9.7-12.2) H 01/06/17 18:50 INR 1.2 01/06/17 18:50 APTT 31 SECONDS (21-34) 01/06/17 18:50 - Constitutional Appears: Non-toxic, No Acute Distress - Head Exam Head Exam: ATRAUMATIC, NORMAL INSPECTION, NORMOCEPHALIC - Eye Exam Eye Exam: EOMI - ENT Exam ENT Exam: Mucous Membranes Moist - Neck Exam Neck Exam: Full ROM, Normal Inspection - Respiratory Exam Respiratory Exam: NORMAL BREATHING PATTERN. absent: Respiratory Distress - Cardiovascular Exam Cardiovascular Exam: +S1, +S2 - GI/Abdominal Exam GI & Abdominal Exam: Soft, Normal Bowel Sounds. absent: Tenderness - Extremities Exam Extremities Exam: Full ROM, Normal Inspection - Neurological Exam Neurological Exam: Alert, Awake, Oriented x3 - Psychiatric Exam Psychiatric exam: Normal Affect, Normal Mood - Skin Skin Exam: Dry, Intact, Normal Color, Warm Assessment and Plan - Assessment and Plan (Free Text) Assessment: Assessment and Plan (1) Chest pain Assessment & Plan: Monitor on Telemetry Cardio consult placed- Dr. Hall- help appreciated EKG on admission showed NSR 71 bpm. LEXA negative X 3 CXR done on admission showed mild venous congestion. Patchy bibasilar airspace opacities. Focal consolidative changes in the left suprahilar region. Right hilar prominence. Scattered nodular densities in both lungs. Cardiac cath performed- medical tx is recommended, stable for dc Aspirin 81 mg PO daily Plavix 75 mg PO daily Lopressr 25 mg PO daily Crestor 10 mg PO HS Morphine 2 mg IV q8H PRN for pain (2) CAD (coronary artery disease) Assessment & Plan: Patient with 50% occlusion of Hx of LCx Aspirin 81 mg PO daily Plavix 75 mg PO daily Lopressr 25 mg PO daily Crestor 10 mg PO HS Status: Acute (3) Hypothyroidism Assessment & Plan: Continue home medication: Synthroid 50 mcg PO daily Status: Acute (4) HTN (hypertension) Assessment & Plan: BP controlled Lopressor 25 mg PO daily Status: Acute (5) Prophylactic measure Assessment & Plan: Protonix 40 mg PO daily Lovenox 40 mg SC daily All management as per Dr. Charlene Chiu.
[2017-01-08 15:37] VITALS: BP 96/57; PULSE 65; TEMP 97.7; O2SAT 95
--- NOTE | 2017-01-09 13:35 | CARD ---
APPROVED REPORT EKG Measurement Heart [id number] MI [id number] <Conclusion> Normal sinus rhythm Low voltage QRS Borderline ECG
--- NOTE | 2017-01-14 20:19 | CARD ---
APPROVED REPORT Protocol: PHARMACOLOGICAL STRESS Test Type: LEXISCAN Test Indications: CHEST PAIN Medications: LIST SCAN Medical History: CHEST PAIN Target HR: 162 bpm Resting ECG: normal Resting Heart Rate: 75 bpm Resting Blood Pressure: 110/70mmHg submaximum (85%): 138 bpm TEST SUMMARY [id number]/70.0. INFUSIONDOSE 100:300.00.01.081/.0. [id number]/70.0. PROCEDURE Pharmacologic stress testing was performed using 0.4mg per 5ml of regadenoson given intravenously over 7-10 seconds. Reversal agent aminophyline 125 mg, given intravenously for Headache. POST EXERCISE Reason for Termination: Protocol Completed Target HR: No Max HR: 81 bpm 67% of Maximum Predicted HR: 162 bpm Exercise duration: 00:30 min:sec, 0 Stage Exercise capacity: 1.0METs Max Blood Pressure: 144/70mmHg Blood Pressure response to exercise: normal resting BP - appropriate response Heart Rate response to exercise: appropriate Chest Pain: No, none Angina index: 0 Arrhythmia: No, none ST Change: No, none Deviation: 0 mm INTERPRETATION Stress EKG Conclusion: AWAIT NUCLEAR IMAGES EXAM: Myocardial Perfusion REST/STRESS Imaging Protocol The imaging protocol used to acquire images was Rest Tc-99m/stress Tc-99m 1 day Rest Spect myocardial perfusion imaging was performed in supine position 45 minutes following the injection of 13.2 mCi of Tc-99 Myoview. Gated Stress Spect was performed 45 minutes after intravenous 30.4 Tc-99 MyoviewmCi injection. The images were gated to evaluate regional wall motion and calculate ventricular ejection fraction.Images were reconstructed using backfilter projection method in short horizontal and verticle long axis. Spect slices were generated. RESTING DATA EDV85.84xpQJ4.00L/min ESV28.00mlMyocardial Pplu416.00g Av. Heart Rate69.00bpm EF67.00% STRESS DATA EDV76.27bpHH0.10L/min ESV28.00mlMyocardial Lnop467.00g EF63.00% Regional WT score at stress:0.00 Regional WM score at stress:0.00 Summed WT score at stress:4.00 Av. Heart Rate65.00bpmSummed WM score at stress:1.00 LV Perf. Quant 17 Seg. SSS3.00 17 Seg. SRS0.00 17 Seg. SDS3.00 Stress Defect Extent (% LAD)3.10Rest Defect Extent (% LAD)0.00Rev. Defect Extent (% LAD)3.10 Stress Defect Extent (% LCX)10.00Rest Defect Extent (% LCX)0.00Rev. Defect Extent (% LCX)8.80 Stress Defect Extent (% RCA)2.20Rest Defect Extent (% RCA)0.00Rev. Defect Extent (% RCA)2.20 Stress Defect Extent (% FELICIA)7.40Rest Defect Extent (% FELICIA)0.00Rev. Defect Extent (% FELICIA)7.20 Other Information Quality:Excellent IMPRESSION Abnormal Myocardial Perfusion exercise stress study Global LV Function: Normal Stress Test Summary: Nondiagnostic LV Perfusion Summary: Abnormal Left Ventricle LV Size/Shape: The left ventricle is normal size. LV Thickness: There is normal left ventricular wall thickness. LV Function:Left ventricle systolic function is normal. The Ejection Fraction is 55-60%. Regional Wall Motion:No regional wall motion abnormalities noted. Metabolism/Perfusion Reversible/Irreversible: There is a medium reversible perfusion/metabolism defect in the [employer] wall. Conclusion 1. Reversible ischemia of the anteroapical wall of the left ventricle. 2. Normal left ventricular function.
--- NOTE | 2017-01-16 11:19 | CATH ---
APPROVED REPORT Procedure(s) performed: Left Heart Catheterization Left Ventriculogram Selective Right and Left Coronary Angiography HISTORY INDICATION The indication(s) include : positive stress test. CASE TECHNIQUE The patient was brought electively to the Cardiac Catheterization Laboratory in a fasting state and was prepped and draped in a sterile Hydrochloride subcutaneous anesthesia. A sheath was inserted into the coronary diagnostic catheters. The left coronary system was accessed and visualized with a Catheter Diagnostic 6Fr JL 3.5 catheter. The right coronary system was accessed and visualized with a Catheter Diagnostic 6Fr JL 3.5 catheter. The left ventricle was accessed and visualized with a Catheter Diagnostic 6Fr JL 3.5 catheter. Left ventricular/Aortic Valve gradient assessed on pullback. Left ventriculogram was performed in LINN projection. Hemostasis was obtained with manual pressure following sheath removal without any complications. The patient tolerated the procedure well and there were no complications associated with the procedure. Vessel Analysis The patient's coronary anatomy is right dominant. The left main coronary artery is a medium size vessel without significant stenosis. The left main bifurcates to the left anterior descending and circumflex. The left anterior descending artery is a medium size vessel with intimal irregularities. The second diagonal branch is a small size vessel . There is a 50% stenosis in the proximal segment. The circumflex artery is a medium size vessel with intimal irregularities. The right coronary artery is a medium size vessel with intimal irregularities. Left Ventricle The left ventricular ejection fraction is estimated to be 55%. There was no gradient across the aortic valve upon pullback. Conclusion Nonobstructive CAD. Normal left ventricular function Recommendations Aggressive Medical Therapy
== END 2017-01-08 17:55 | disposition home or self-care (01) | DRG 125 ==
LOC: C.ER 18:01 → C.9E 19:19 → C.5S 19:45
PROVIDERS: ADMIT Internal Medicine Nephrology; ATTEND Internal Medicine Nephrology
PROC: B2151ZZ Fluoroscopy of Left Heart using Low Osmolar Contrast (ICD-10-PCS; 2017-01-08)
PROC: B2111ZZ Fluoroscopy of Multiple Coronary Arteries using Low Osmolar Contrast (ICD-10-PCS; 2017-01-08)
PROC: 4A023N7 Measurement of Cardiac Sampling and Pressure, Left Heart, Percutaneous Approach (ICD-10-PCS; principal; 2017-01-08 07:00)
DX: I25.119 Atherosclerotic heart disease of native coronary artery with unspecified angina pectoris (principal); I10 Essential (primary) hypertension; E03.9 Hypothyroidism, unspecified; E78.00 Pure hypercholesterolemia, unspecified; K29.70 Gastritis, unspecified, without bleeding